=== PATIENT | male | born 1970 | race Caucasian/White ===

== ENCOUNTER 2017-02-23 21:25 | Emergency (ER) | payer BC ==
[~2017-02-23] VITALS: Ht 188 cm; Wt 132.7 kg
[2017-02-23] MEDS ORDERED: NO KNOWN MEDICATIONS (22:52)
--- NOTE | 2017-02-23 23:35 | NUR ---
REPORT GIVEN TO TAD PANCHAL. CARE ASSUMED.
--- NOTE | 2017-02-23 23:48 | NUR ---
DR DR BUSH AT BEDSIDE.
[2017-02-24] MEDS ORDERED: LIDOCAINE 1%/EPI 1:100,000 20ml MDV SQ ONE
--- NOTE | 2017-02-24 | NUR ---
LOCAL WOUND CLEANED BY NS/CHLORHEXADINE LIDOCAIN W/EPI USED LOCAL BY DR BUSH PT DEE WELL FAMILY AT BEDSIDE
--- NOTE | 2017-02-24 00:11 | NUR ---
FRANCHESKA FRANCHESKA PLACED TO LACERATION TO SCALP BY DR BUSH AT BEDSIDE PT DEE WELL
--- NOTE | 2017-02-24 00:12 | ERPDOC ---
Departure Disposition Decision Date: Feb 24, 2017 Disposition Decision Time: 00:09 Disposition: 01 DISCHARGED HOME, SELF-CARE Impression Impression Impression: Primary Impression: Laceration Additional Impression: Mild TBI Encounter type: initial encounter Loss of consciousness presence/duration: without LOC Qualified Codes: S06.9X0A - Unspecified intracranial injury without loss of consciousness, initial encounter Severity: Mild Condition: Improved Seen By: Physician only Referrals: YOUR PHYSICIAN 1 Week Patient Instructions: Laceration (ED), Staple Care (ED) Problems/Meds/Labs Reviewed?: Yes Medications reviewed and manag: Yes Additional Instructions: Your cut has been closed with laverne. They will need to be removed in 7-10 days. Treat your likely concussion with naproxen and tylenol. Avoid activities that cause you to have a headache. Follow up with your doctor in the next week. Follow up care ordered?: Yes Mental Status: Alert, Oriented HPI - Skin General General Chief Complaint: Laceration Stated Complaint: LACERATION TO TOP OF HEAD Time Seen by Provider: 23:51 Source: patient, family Exam Limitations: no limitations HPI - Skin General Initial Comments 46yo man presents to the ER tonight with bleeding from his scalp. Pt was moving a large metal object in his shop, when his helper lost control of his end. The metal hit the pt across his left scalp; pt had significant bleeding and was convinced to present for eval/treatment. Occurred At: home Onset: Rapid Duration: 1-3 hrs Pain Scale: Now & Worst: 5/10 Severity: moderate Location: scalp 1 - Scalp lac 2 - Scalp lac Hx of Similar Symptoms: No Allergies: Coded Allergies: NKDA (Verified Allergy, Unknown, 02/23/17) Past History Past Medical History Pt denies signifigant PMH Review of Systems Integumentary Comments laceration Neurological General: headache All other Systems All Other Systems: Reviewed and Negative Physical Exam General General Nourishment: well nourished, well developed, appears stated age, no acute distress, adult, obese General Body Habitus: well groomed Vitals and Pain Weight: Kilograms: Height (feet): Height (inches): Triage Pain Scale: RN VS reviewed by Provider: Yes ENMT (brief) Comments No palpable depressions, step offs, or other s/s of fracture. No ecchymosis. Integumentary (brief) Comments 10cm partially avulsed/lacerated skin along pts left scalp as described in the diagram. Bleeding has ceased at presentation. Neurologic (brief) Neurological Brief: FOUND: CN w/o gross def to obs, DTR 2/4 all extremities, gait w/o gross def to obs, motor-no gross deficits, sensory-no gross deficits, NOT FOUND: Babinski Supervisory Exam Eyes: PERRL Nares: no exudate Neck: trachea midline Chest: symmetric Abdomen: non-distended Musculoskeletal: no deformity or atrophy Psychological: alert, appropriate Differential Diagnoses Considering: Laceration, Other (Avulsion, fracture, contusion) Procedures Procedures Performed Procedures Performed: Laceration Repair Laceration/Wound Repair Wound/Laceration Repair : Wound Location: head Wound Length (cm): 10 Depth, Shape: linear Explored: clean Irrigated: saline Prep: hibiclens Anesthesia: 1% Lidocaine c Epi Volume Anesthetic (ccs): 6 Type of Block: local Wound Debrided: minimal Wound Revision?: No Repaired With: Laverne Number of Sutures: 12 Layer Closure?: No Sterile Dressing Applied?: Yes Splint Applied?: No Sling Applied?: No Progress Results/Orders Orders Procedure Category Date Status Time Lidocaine 1% / Epi PHA 02/24/17 Complete 1:100,000 (Xylocaine 00:00 Tetanus,Diphth,A PHA 02/24/17 Complete Pertus (Tdap) (Adacel) 00:15 Medications Current ED Medications Lidocaine/ Epinephrine (Xylocaine 1%/ Epi 1:100,000) 20 ml O ONCE SQ Last administered on 02/24/17 00:00; Start 02/24/17 at 00:00; Stop 02/24/17 at 00:01 ; Status DC Diphtheria/ Tetanus/Acell Pertussis (Adacel) 0.5 ml O ONCE IM Last administered on 02/24/17 00:37; Start 02/24/17 at 00:15; Stop 02/24/17 at 00:16 ; Status DC Progress Progress Laceration repaired as described. Discussed dx, prognosis, and treatment with pt , who voiced understanding. F/u with PCM in 10 days for staple removal. SEBLE BUSH DO Feb 24, 2017 00:12
[2017-02-24] MEDS ORDERED: TETANUS,DIPHTH,a PERTUS (Tdap) 0.5 ML VIAL IM ONE (00:15)
--- NOTE | 2017-02-24 00:16 | NUR ---
TDAP TDAP GIVEN AFTER PT AND REVIEWED INFORMATION AND CONSENTED TO GET THE VACCINATION. PT DEE WELL
--- NOTE | 2017-02-24 00:22 | NUR ---
INSTRUCTIONS DISMISSAL INSTRUCTIONS GIVEN TO PT AND BOTH VERBALIZED UNDERSTANDING OF ALL
--- NOTE | 2017-02-24 00:24 | NUR ---
DISMISS PT DISMISSED AMBULATORY WITH SPOUSE
--- NOTE | 2017-02-24 00:37 | NUR ---
Michael nayak in ED - 02/24/17 at 0843 by ASTRID TDAP TDAP GIVEN AFTER PT AND REVIEWED INFORMATION AND CONSENTED TO GET THE VACCINATION. PT DEE WELL
[2017-02-24 21:45] VITALS: BP 133/72; PULSE 64; RESP 12; TEMP 98.6; O2SAT 97; Ht 188 cm; Wt 132.7 kg
== END 2017-02-24 00:24 | disposition home or self-care (01) ==
LOC: ED 21:25
DX: S01.01XA Laceration without foreign body of scalp, initial encounter (principal); S06.9X0A Unspecified intracranial injury without loss of consciousness, initial encounter; W22.8XXA Striking against or struck by other objects, initial encounter; Y93.89 Activity, other specified; Y92.008 Other place in unspecified non-institutional (private) residence as the place of occurrence of the external cause; Y99.8 Other external cause status
CPT/HCPCS: 90471; 90715